=== PATIENT | male | born 1960 | race Caucasian/White ===

== ENCOUNTER 2020-03-13 10:24 | Emergency (ER) | payer MEDICARE, MEDICAID, SELFPAY ==
--- NOTE | ~2020-03-13 | CT_ITS ---
EXAMINATION: CT abdomen pelvis wo con EXAM DATE: 03/13/2020 12:35 INDICATION: Rectal bleeding, abdominal pain. TECHNIQUE: Spiral CT of the abdomen and pelvis was performed without contrast. Axial, coronal and s agittal images were reviewed. The dose-length product (DLP) for this examination was 467.69 mGy-cm. The exposure was tailored according to patient size (auto mA exposure control), and iterative recons truction (ASIR) was used as additional dose reduction technique. Comparison is made to prior examinat ion from 02/21/2020, 11/26/2018, 11/13/2018, 06/12/2012. Mild prostatomegaly.. FINDINGS: Study is limited due to patient motion. There is mild sliding gastroesophageal hiatal herni a. The largest liver cyst is in the liver between the right and left lobes, measures 4 cm. The sple en, pancreas, and adrenal glands are unremarkable. Gallbladder not identified, patient likely has mack d cholecystectomy. Portal and splenic veins are patent. Kidneys enhance symmetrically. There is no hydronephrosis. Prostate measures 5 cm transverse dimension. There is rectosigmoid anastomosis. Th ere is focal well-circumscribed peripherally masslike calcified region to the left of the rectosigmoi d anastomosis measuring 3.9 x 2.9 cm, unchanged compared to prior studies The bladder is collapsed a t time of imaging limiting evaluation. There is no retroperitoneal or pelvic lymphadenopathy. Ther e is mild scattered arteriosclerotic disease. Fatty infiltration of the appendix wall. There is small sliding gastroesophageal hiatal hernia. The re is moderate amount of colonic stool. No free intraperitoneal gas. The heart is normal in size. There are no pericardial or pleural effusions. The lung bases are unremarkable. There are no oste oblastic or osteolytic lesions identified. IMPRESSION: 1. Moderate amount of colonic stool. 2. Stable masslike density left of the rectosigmoid anastomosis, chronic and therefore likely benign Reviewed, dictated and finalized at location A. IMPRESSION: 1. Moderate amount of colonic stool. 2. Stable masslike density left of the rectosigmoid anastomosis, chronic and t herefore likely benign
[2020-03-13 10:23] VITALS: BP 152/96; PULSE 99; RESP 17; TEMP 36.5; O2SAT 100
--- NOTE | 2020-03-13 10:46 | ED.GENADULT ---
HPI - General Adult General Chief complaint: Unspecified Stated complaint: RECTAL BLEEDING Time Seen by Provider: 03/13/20 10:28 Source: RN notes reviewed History of Present Illness HPI narrative: Patient presents emergency department from home for blood in the stool. Patient states for the past 3 days he has been having bright red blood per rectum. He states is been associated with lower abdominal pain as well as rectal pain. He denies any fevers or chills chest pain shortness of breath or any other symptoms. Denies any current use of blood thinners denies any other symptoms at this time Review of Systems Review of Systems: Narrative: Gen.: Denies fevers or chills ENT: Denies congestion Respiratory: Denies shortness of breath or cough CV: Denies chest pain or palpitations GI: See HPI denies burning, urgency, frequency or hematuria Musculoskeletal: Denies back pain or muscle pain Neuro: Denies numbness, tingling, weakness or focal weakness Skin: Denies rash Except as documented, all other systems reviewed and negative [facility] Past Medical History Medical History (Updated 03/13/20 @ 13:00 by Servando Blue DO) Schizophrenia Social History Social History (Updated 03/13/20 @ 10:48 by Servando Blue DO) Smoking status: Never smoker Exam Narrative: Exam Narrative: APPEARANCE: No acute distress, nontoxic, resting in bed EYES: EOMI HEENT: Normocephalic, atraumatic, OMM RESPIRATORY: No respiratory distress Clear to auscultation bilaterally with no rhonchi wheezing or rales. CARDIOVASCULAR: Regular rate and rhythm without murmurs rubs or gallops. ABDOMINAL: Soft, nondistended, tender palpation right lower quadrant left lower quadrant, no tenderness right upper quadrant left lower quadrant no rebound or guarding Rectal: Hemorrhoids present no active bleeding, small brown stool present that is Hemoccult negative MUSCULOSKELETAl: Moves all extremities. No clubbing, cyanosis or edema. NEURO: Awake and alert. Following commands, speech normal, no focal deficits SKIN:: Warm, dry. No rashes lesions or abrasions PSYCHIATRIC: Normal affect/mood, Course Course Emergency Course: Patient states he is feeling better at this time wishing to eat Patient states that they are feeling much better at this time. States abdominal pain has resolved. Repeat abdominal exam shows the patient's abdomen to be soft and nontender. Discussed with patient results of workup and diagnosis. Discussed need for follow-up with primary care physician, reasons to return to the emergency department in proper use of medication. Patient understands and agrees to current treatment plan Vital Signs Vital signs: Vital Signs Temperature 97.7 F 03/13/20 10:23 Pulse Rate 99 03/13/20 10:23 Respiratory Rate 17 03/13/20 10:23 Blood Pressure 152/96 H 03/13/20 10:23 Pulse Oximetry 100 03/13/20 10:23 Temperature 97.7 F 03/13/20 10:23 Pulse Rate 99 03/13/20 10:23 Respiratory Rate 17 03/13/20 10:23 Blood Pressure 152/96 H 03/13/20 10:23 Pulse Oximetry 100 03/13/20 10:23 Medical Decision Making Vital Signs Vital Signs: Vital Signs Temperature 97.7 F 03/13/20 10:23 Pulse Rate 99 03/13/20 10:23 Respiratory Rate 17 03/13/20 10:23 Blood Pressure 152/96 H 03/13/20 10:23 Pulse Oximetry 100 03/13/20 10:23 Temperature 97.7 F 03/13/20 10:23 Pulse Rate 99 03/13/20 10:23 Respiratory Rate 17 03/13/20 10:23 Blood Pressure 152/96 H 03/13/20 10:23 Pulse Oximetry 100 03/13/20 10:23 Lab Data Result diagrams: 03/13/20 11:03 03/13/20 11:03 Labs: Lab Results 03/13/20 03/13/20 03/13/20 Range/Units 10:57 11:03 11:03 WBC 6.9 (4.5-10.0) K/mm3 RBC 4.60 (4.6-6.20) M/mm3 Hgb 14.0 (14.0-18.0) g/dL Hct 39.3 L (42.0-52.0) % MCV 85.4 (80-100) fl MCH 30.4 (26-34) pg MCHC 35.6 (32-36) g/dl RDW 12.0 (11.5-14.5) % Plt Count 195 (150-375)
[2020-03-13 11:10] LABS: Basophils Percent Auto 0.4 % (0.2-1.2); Eosinophils Absolute Auto 0.1 K/mm3 (0-0.3); Hematocrit 39.3 % (42.0-52.0); Immature Granulocyte Absolute 0.02 K/mm3 (0.00-0.031); Immature Granulocyte Percent A 0.3 % (0-0.5); Lymphocytes Absolute Auto 1.11 K/mm3 (0.9-3.2); Lymphocytes Percent Auto 16.1 % (18.3-44.2); Mean Corpuscular HGB Conc 35.6 g/dl (32-36); Mean Corpuscular Hemoglobin 30.4 pg (26-34); Mean Corpuscular Volume 85.4 fl (80-100); Mean Platelet Volume 10.2 fl (7.4-10.4); Monocytes Absolute Auto 0.5 K/mm3 (0.1-0.6); Monocytes Percent Auto 7.8 % (2.6-8.5); Neutrophils Absolute Auto 5.1 K/mm3 (1.3-6.7); Neutrophils Percent Auto 74.4 % (45.5-73.1); Platelet Count Result 195 k/mm3 (150-375); White Blood Count 6.9 K/mm3 (4.5-10.0)
[2020-03-13 11:19] LABS: Prothrombin Time 12.8 Seconds (11.1-14.7)
[2020-03-13 11:20] LABS: Partial Thromboplastin Time 25.5 SECONDS (22.3-36.8)
[2020-03-13 11:21] LABS: Alanine Aminotransferase 18 U/L (4-50); Albumin Level 4.6 g/dL (3.5-5.1); Alkaline Phosphatase 75 U/L (38-126); Anion Gap 9 mmol/L (8-16); Aspartate Amino Transferase 23 U/L (17-59); Bilirubin,Total 1.2 mg/dL (0.2-1.3); Blood Urea Nitrogen 15 mg/dL (9-20); Calcium 9.2 mg/dL (8.4-10.2); Carbon Dioxide 27 mmol/L (22-30); Chloride 102 mmol/L (98-107); Estimated CRCL calculation 82 ml/min; Estimated Glomerular Filt Rate > 60; Glucose 98 mg/dL (75-110); Potassium 4.1 mmol/L (3.4-5.0); Sodium 138 mmol/L (137-145)
[2020-03-13 11:22] LABS: Lactic Acid Reflex 0.8 mmol/L (0.7-2.1)
[2020-03-13 12:00] VITALS: BP 147/90; PULSE 98; RESP 17; O2SAT 100
--- NOTE | 2020-03-13 12:45 | PC.NURSE ---
noticed UA was not resulted, checked with fire control technician b about status. She states she sent the UA along time ago. Lab called and states that they never received the specimen
--- NOTE | 2020-03-13 13:10 | PC.NURSE ---
Haydee just notified me that she found the specimen in the tube system. sending it now
[2020-03-13 13:24] LABS: Add Urine Microscopic? NO; Appearance Urine Clear (Clear); Bilirubin Urine Negative (Negative); Blood Urine Negative (Negative); Color Urine Yellow (Yellow); Glucose Urine UA Negative (Negative); Ketones Urine Negative (Negative); Leukocyte Esterase Ur Negative LEU/UL (Negative); Nitrate Urine Negative (Negative); Protein Urine Negative (Negative); Specific Grav Ur 1.017 (1.001-1.035); Urobilinogen Urine Negative mg/dL (<2.0)
[2020-03-13 14:00] VITALS: BP 137/88; PULSE 84; RESP 18; O2SAT 100
[2020-03-13 15:17] VITALS: BP 134/83; PULSE 86; RESP 12; O2SAT 100
== END 2020-03-13 15:19 | disposition home or self-care (01) ==
PROVIDERS: Emergency Provider Emergency Medicine
DX: K62.5 Hemorrhage of anus and rectum (principal); K64.9 Unspecified hemorrhoids; K59.00 Constipation, unspecified
CPT/HCPCS: 36415; 51701; 74176; 80053; 81003; 83605; 85025; 85610; 85730; 86850; 86900; 86901; 99284